=== PATIENT | male | born 2000 | race Hispanic/Latino ===

== ENCOUNTER 2022-07-29 16:42 | Emergency (ER) | payer BC ==
[2022-07-29 18:15] LABS: Basophils % (Auto) 0.3 % (0.0-1.8); Eosinophils # (Auto) 0.1 K/mm3 (0.0-0.4); Eosinophils % (Auto) 0.4 % (0.0-4.3); Hematocrit 40.5 % (35.5-45.6); Hemoglobin 13.9 gm/dl (11.8-15.2); Lymphocytes # (Auto) 0.8 K/mm3 (1.2-5.4); Lymphocytes % (Auto) 6.3 % (13.4-35.0); Mean Corpuscular HGB Conc 34 % (32-34); Mean Corpuscular Volume 90 fl (84-94); Monocytes # (Auto) 0.6 K/mm3 (0.0-0.8); Monocytes % (Auto) 4.6 % (0.0-7.3); Platelet Count 301 K/mm3 (140-440); Red Blood Count 4.51 M/mm3 (3.65-5.03); Red Cell Distribution Width 12.6 % (13.2-15.2)
[2022-07-29 18:39] LABS: Alanine Aminotransferase 15 units/L (7-56); Albumin 4.8 g/dL (3.9-5); BUN/Creatinine Ratio 28; Blood Urea Nitrogen 25 mg/dL (9-20); Calcium 9.3 mg/dL (8.4-10.2); Hemolysis Index 9
[2022-07-29 19:13] LABS: Mucus,Urine 1+ /HPF
[2022-07-29 19:16] LABS: Color,Urine Yellow (Yellow)
--- NOTE | 2022-07-29 21:01 | Emergency Department Report ---
ED General Adult HPI - General Chief complaint: Nausea/Vomiting/Diarrhea Stated complaint: NAUSEA/VOMITING Time Seen by Provider: 07/29/22 20:11 Source: patient, EMS Mode of arrival: Stretcher Limitations: No Limitations - History of Present Illness Initial comments: 21-year-old male with no significant past medical history reports to the ER after having a syncopal episode along with nausea and vomiting around 3:30 PM. Patient reports prior to the episode he had felt nauseous and diaphoretic and shaking. No other acute symptoms reported. Mother found patient lying on the floor called EMS and patient was around prior to EMS arrival. Patient's initial vital signs here in the ER stable. On initial assessment patient now reports no acute symptoms and reports that he feels normal at this time. Severity scale (0 -10): 0 - Related Data Allergies Allergy/AdvReac Type Severity Reaction Status Date / Time No Known Allergies Allergy Unverified 07/29/22 16:55 ED Review of Systems ROS: Stated complaint: NAUSEA/VOMITING Other details as noted in HPI Comment: All other systems reviewed and negative Respiratory: denies: shortness of breath Cardiovascular: denies: chest pain Gastrointestinal: nausea, vomiting. denies: abdominal pain Neurological: headache, other (Syncope) ED Past Medical Hx - Past Medical History Previous Medical History?: No ED Physical Exam - General Limitations: No Limitations General appearance: alert, in no apparent distress - Head Head exam: Present: atraumatic, normocephalic - Eye Eye exam: Present: normal appearance, PERRL, EOMI - ENT ENT exam: Present: mucous membranes moist - Neck Neck exam: Present: normal inspection - Respiratory Respiratory exam: Present: normal lung sounds bilaterally. Absent: respiratory distress - Cardiovascular Cardiovascular Exam: Present: regular rate, normal rhythm. Absent: systolic murmur, diastolic murmur, rubs, gallop - GI/Abdominal GI/Abdominal exam: Present: soft, normal bowel sounds. Absent: distended, tenderness, guarding, rebound, rigid - Rectal Rectal exam: Present: deferred - Extremities Exam Extremities exam: Present: normal inspection - Back Exam Back exam: Present: normal inspection - Neurological Exam Neurological exam: Present: alert, oriented X3, normal gait - Expanded Neurological Exam Expanded Neurological exam: Absent: tremor Speech: Present: fluid speech Cranial nerves: EOM's Intact: Normal Motor strength exam: RUE: 5, LUE: 5, RLE: 5, LLE: 5 Best Eye Response ([place]): (4) open spontaneously Best Motor Response ([place]): (6) obeys commands Best Verbal Response ([place]): (5) oriented Patel Total: 15 - Psychiatric Psychiatric exam: Present: normal affect, normal mood - Skin Skin exam: Present: warm, dry, intact, normal color. Absent: rash ED Course Vital Signs 07/29/22 16:53 Temperature 97.3 F L Pulse Rate 76 Respiratory 18 Rate Blood Pressure 129/91 [Left] O2 Sat by Pulse 97 Oximetry ED Medical Decision Making - Lab Data Result diagrams: 07/29/22 17:23 07/29/22 17:22 - Medical Decision Making 21-year-old male with no significant past medical history reports to the ER after having a syncopal episode along with nausea and vomiting around 3:30 PM. Patient reports prior to the episode he had felt nauseous and diaphoretic and shaking. No other acute symptoms reported. Mother found patient lying on the floor called EMS and patient was around prior to EMS arrival. Patient's initial vital signs here in the ER stable. On initial assessment patient now reports no acute symptoms and reports that he feels normal at this time. Physical examno acute findings noted on physical exam. Patient neurologically intact. No abdominal pain. S1-S2 with no abnormal heart sounds. CBC unremarkable Vital Signs 07/29/22 16:53 Temperature 97.3 F L Pulse Rate 76 Respiratory 18 Rate Blood Pressure 129/91 [Left] O2 Sat by Pulse 97 Oximetry Vital Signs 07/29/22 07/29/22 07/29/22 16:53 21:20 21:21 Temperature 97.3 F L 98.3 F Pulse Rate 76 74 Respiratory 18 16 Rate Blood Pressure 129/91 117/74 [Left] O2 Sat by Pulse 97 100 100 Oximetry Lab Results 07/29/22 07/29/22 07/29/22 Range/Units 17:22 17:23 18:45 WBC 12.5 H (4.5-11.0) K/mm3 RBC 4.51 (3.65-5.03) M/mm3 Hgb 13.9 (11.8-15.2) gm/dl Hct 40.5 (35.5-45.6) % MCV 90 (84-94) fl MCH 31 (28-32) pg MCHC 34 (32-34) % RDW 12.6 L (13.2-15.2) % Plt Count 301 (140-440) K/mm3 Lymph % (Auto) 6.3 L (13.4-35.0) % [place] % (Auto) 4.6 (0.0-7.3) % Eos % (Auto) 0.4 (0.0-4.3) % Baso % (Auto) 0.3 (0.0-1.8) % Lymph # (Auto) 0.8 L (1.2-5.4) K/mm3 [place] # (Auto) 0.6 (0.0-0.8) K/mm3 Eos # (Auto) 0.1 (0.0-0.4) K/mm3 Baso # (Auto) 0.0 (0.0-0.1) K/mm3 Seg Neutrophils % 88.4 H (40.0-70.0) % Seg Neutrophils # 11.0 H (1.8-7.7) K/mm3 Sodium 139 (137-145) mmol/L Potassium 3.9 (3.6-5.0) mmol/L Chloride 101.8 (98-107) mmol/L Carbon Dioxide 24 (22-30) mmol/L Anion Gap 17 mmol/L BUN 25 H (9-20) mg/dL Creatinine 0.9 (0.8-1.3) mg/dL Estimated GFR > 60 ml/min BUN/Creatinine Ratio 28 % Glucose 133 H (75-100) mg/dL Calcium 9.3 (8.4-10.2) mg/dL Total Bilirubin 0.50 (0.1-1.2) mg/dL AST 15 (5-40) units/L ALT 15 (7-56) units/L Alkaline Phosphatase 84 (35-129) units/L Total Protein 6.4 (6.3-8.2) g/dL Albumin 4.8 (3.9-5) g/dL Albumin/Globulin Ratio 3.0 % Lipase 18 (13-60) units/L Urine Color Yellow (Yellow) Urine Turbidity Clear (Clear) Specific [place] (Man) 1.020 (1.003-1.030) Ur Protein (Man) 1+ (Negative) mg/dL Ur Ketones (Man) Negative (Negative) Ur Nitrite (Man) Negative (Negative) Ur Reducing Substances Not Reportable Urine Bilirubin (Man) Negative (Negative) Urine Ictotest Not Reportable Leukocyte Esterase (Man) Negative (Negative) Urine WBC (Auto) 6.0 (0.0-6.0) /HPF Urine RBC (Auto) 1.0 (0.0-6.0) /HPF U Epithel Cells (Auto) < 1.0 (0-13.0) /HPF Urine RBC (Manual) Negative (Negative) Urine Mucus 1+ /HPF Critical care attestation.: If time is entered above; I have spent that time in minutes in the direct care of this critically ill patient, excluding procedure time. ED Disposition Clinical Impression: Nausea and vomiting Qualifiers: Vomiting type: unspecified Qualified Code(s): R11.2 - Nausea with vomiting, unspecified Disposition: 01 HOME / SELF CARE / HOMELESS Is pt being admited?: No Condition: Stable Instructions: Nausea, Adult, Nausea and Vomiting, Adult Referrals: ML WISEMAN MD [Primary Care Provider] - 3-5 Days
[2022-07-29 21:21] VITALS: BP 117/74
== END 2022-07-29 21:45 | disposition home or self-care (01) ==
LOC: ED 16:42
DX: R11.2 Nausea with vomiting, unspecified (principal)
CPT/HCPCS: 36415; 80053; 81001; 83690; 85025; 99283

== ENCOUNTER 2022-08-03 10:07 | Outpatient (CLI) | payer BC ==
[2022-08-03 11:02] LABS: Hematocrit 42.2 % (35.5-45.6); Hemoglobin 14.4 gm/dl (11.8-15.2); Mean Corpuscular HGB Conc 34 % (32-34); Mean Corpuscular Volume 90 fl (84-94); Platelet Count 326 K/mm3 (140-440); Red Cell Distribution Width 12.2 % (13.2-15.2)
[2022-08-03 11:06] LABS: Basophils % (Auto) 0.3 % (0.0-1.8); Eosinophils # (Auto) 0.1 K/mm3 (0.0-0.4); Lymphocytes # (Auto) 0.7 K/mm3 (1.2-5.4); Lymphocytes % (Auto) 9.6 % (13.4-35.0); Monocytes # (Auto) 0.4 K/mm3 (0.0-0.8); Monocytes % (Auto) 5.7 % (0.0-7.3)
[2022-08-03 11:18] LABS: Chol/HDL Ratio 2.85 %
== END 2022-08-03 10:08 | disposition home or self-care (01) ==
LOC: LAB 10:07
PROVIDERS: ATTEND Internal Medicine
DX: Z00.00 Encounter for general adult medical examination without abnormal findings (principal); R73.9 Hyperglycemia, unspecified; R53.83 Other fatigue; E55.9 Vitamin D deficiency, unspecified
CPT/HCPCS: 36415; 80061; 83036; 84443; 85025